=== PATIENT | female | born 1945 | race Caucasian/White ===

== ENCOUNTER 2016-12-13 08:34 | Inpatient (IN) | payer OTHER ==
[2016-12-13] VITALS (37 sets, daily range): BP systolic 72–198; BP diastolic 45–120
[~2016-12-13] VITALS: Ht 165.1 cm; Wt 89.8 kg
[2016-12-13 10:14] LABS: BASOPHILS % 1.1 % (0.0-2.0); EOSINOPHILS % 0.7 % (0.0-5.0); HEMATOCRIT. 40.2 % (36.0-48.0); HEMOGLOBIN. 13.1 g/dL (12.0-16.0); LYMPHOCYTES % 16.5 % (20.0-50.0); MEAN CORPUSCULAR VOLUME 85.5 fL (81.0-99.0); MEAN PLATELET VOLUME 10.7 fl (7.4-10.4); MONOCYTES % 8.5 % (2.0-8.0); NEUTROPHILS % 73.2 % (40.0-76.0); PLATELET 232 x1000/uL (130-400); RED CELL DISTRIBUTION WIDTH 15.4 % (11.6-14.6)
[2016-12-13] MEDS ORDERED: AMIODARONE HCL 900 MG in DEXT 5% WATER 482 ML IV STA ×2 (10:22→10:25)
[2016-12-13 10:32] LABS: CARBON DIOXIDE 25 mEq/L (21-32); CHLORIDE 99 mEq/L (98-107); TROPONIN I 0.02 ng/mL (0.00-0.04)
[2016-12-13 10:39] LABS: INR 1.4; PROTHROMBIN TIME 14.6 sec (9.4-11.6)
[2016-12-13] MEDS ORDERED: NOREPINEPHRINE 4 MG in DEXT 5% WATER 246 ML IV ONE (10:45)
[2016-12-13] MEDS ORDERED: NOREPINEPHRINE 4 MG in DEXT 5% WATER 246 ML IV NR (10:45)
[2016-12-13] MEDS ORDERED: EPINEPHRINE 0.1MG/ML (1:10,000) 10ML SYR ONE ×2 (10:48→12:12)
[2016-12-13] MEDS ORDERED: ETOMIDATE 2MG/ML 10ML VIAL IV ONE (11:15)
[2016-12-13] MEDS ORDERED: SUCCINYLCHOLINE CHLORIDE 200MG/10ML VIAL IV ONE (11:15)
[2016-12-13 12:00] LABS: BG BASE EXCESS -17.4 mmol/L (-2.0-2.0); BG CARBOXYHEMOGLOBIN 0.5 % (0.5-1.5); BG DEOXYHEMOGLOBIN 20.9 % (0.0-5.0); BG FRACTION INSPIRED OXYGEN 100; BG HCO3 ACT 13.7 mmol/L (22.0-26.0); BG METHEMOGLOBIN 0.3 % (0.0-1.5); BG OXYGEN SATURATION 78.9 % (92.0-98.5); BG OXYHEMOGLOBIN 78.3 % (94.0-97.0); BG PCO2 54.7 mmHg (35.0-45.0); BG PH 7.018 (7.350-7.450); BG PO2 62.2 mmHg (75.0-100.0); BG SAMPLE SITE RIGHT RADIAL; BG TIDAL VOLUME(mL) 500 mL; BG TOTAL HEMOGLOBIN 13.7 g/dL (12.0-18.0); BG VENT MODE VENT - A/C; BG VENT RATE 10 set
[2016-12-13] MEDS ORDERED: IPRATROPIUM/ALBUTEROL 0.5-3(2.5)MG/3ML NEB HHN PRN (12:00)
[2016-12-13] MEDS ORDERED: IPRATROPIUM/ALBUTEROL 0.5-3(2.5)MG/3ML NEB HHN SCH (12:00)
[2016-12-13] MEDS ORDERED: SODIUM BICARBONATE 8.4% 1 MEQ/ML 50ML SYR IV ONE ×2 (12:00→13:45)
[2016-12-13] MEDS ORDERED: MAGNESIUM 2 G PREMIX 50 ML IV ONE (12:00)
[2016-12-13] MEDS ORDERED: SODIUM BICARBONATE 7.5% 0.9 MEQ/ML 50ML SYR IV ONE (12:12)
[2016-12-13] MEDS ORDERED: CALCIUM CHLORIDE 1GM/10ML SYR IV ONE (12:12)
[2016-12-13] MEDS ORDERED: AMIODARONE HCL 50MG/ML 3ML VIAL IV ONE (12:12)
[2016-12-13] MEDS ORDERED: ATROPINE SULFATE 1MG/10ML SYR ONE ×2 (12:12)
[2016-12-13] MEDS ORDERED: DOPAMINE 400MG PREMIX 250 ML IV ONE (12:28)
[2016-12-13 13:29] LABS: BG BASE EXCESS -11.1 mmol/L (-2.0-2.0); BG CARBOXYHEMOGLOBIN 0.6 % (0.5-1.5); BG DEOXYHEMOGLOBIN 0.2 % (0.0-5.0); BG FRACTION INSPIRED OXYGEN 100; BG HCO3 ACT 16.8 mmol/L (22.0-26.0); BG METHEMOGLOBIN 0.4 % (0.0-1.5); BG OXYGEN SATURATION 99.8 % (92.0-98.5); BG OXYHEMOGLOBIN 98.8 % (94.0-97.0); BG PCO2 44.8 mmHg (35.0-45.0); BG PH 7.191 (7.350-7.450); BG PO2 365.6 mmHg (75.0-100.0); BG SAMPLE SITE RIGHT RADIAL; BG TIDAL VOLUME(mL) 500 mL; BG TOTAL HEMOGLOBIN 14.2 g/dL (12.0-18.0); BG VENT MODE VENT - A/C; BG VENT RATE 14 set
[2016-12-13] MEDS ORDERED: DOPAMINE 800MG PREMIX 250 ML IV PRN ×2 (14:00→14:30)
[2016-12-13] MEDS ORDERED: MIDAZOLAM HCL 50 MG in DEXTROSE 5% WATER 40 ML IV ONE (14:00)
[2016-12-13] MEDS ORDERED: IPRATROPIUM/ALBUTEROL 0.5-3(2.5)MG/3ML NEB INH PRN (15:15)
[2016-12-13] MEDS ORDERED: DOCUSATE SODIUM 100MG CAPSULE PO PRN (15:15)
[2016-12-13] MEDS ORDERED: DIPHENHYDRAMINE 50MG/ML VIAL IV PRN (15:15)
[2016-12-13] MEDS ORDERED: LORAZEPAM 2MG/ML CPJ IV PRN (15:15)
[2016-12-13] MEDS ORDERED: MAGNESIUM/ALUMINUM HYDROXIDE/SIMETHICONE 30ML UDC PO PRN (15:15)
[2016-12-13] MEDS ORDERED: GUAIFENESIN 200MG/10ML SUGAR FREE UDC PO PRN (15:15)
[2016-12-13] MEDS ORDERED: NA PHOS,M-B/NA PHOS,DI-BA ENEMA 118ML PR PRN (15:15)
[2016-12-13] MEDS ORDERED: CLONIDINE 0.1MG TABLET PO PRN (15:15)
[2016-12-13] MEDS ORDERED: ONDANSETRON HCL 4MG/2ML VIAL IV PRN (15:15)
[2016-12-13] MEDS ORDERED: ACETAMINOPHEN 325MG TABLET PO PRN (15:15)
[2016-12-13] MEDS ORDERED: VANCOMYCIN 1 G PREMIX 200 ML IV SCH (15:30)
[2016-12-13] MEDS: IPRATROPIUM/ALBUTEROL 0.5-3(2.5)MG/3ML NEB HHN SCH ×2 (17:01→20:25)
[2016-12-13] MEDS ORDERED: SODIUM BICARBONATE 8.4% 1 MEQ/ML 50ML SYR IV NR (17:45)
[2016-12-13] MEDS: DEXT 5%/0.45% NACL 1000ML 1,000 ML IV SCH (18:27)
[2016-12-13] MEDS: ENOXAPARIN 80MG/0.8ML SYR SUBCUT SCH (18:29)
[2016-12-13] MEDS ORDERED: SODIUM BICARBONATE 100 MEQ in SODIUM CHLORIDE 0.45% 1,000 ML IV SCH (18:30)
[2016-12-13] MEDS: NOREPINEPHRINE 16 MG in DEXT 5% WATER 234 ML IV PRN (19:46)
[2016-12-13] MEDS ORDERED: VANCOMYCIN 1500MG in DEXTROSE 5% WATER 250ML IV NR (20:00)
[2016-12-13] MEDS: CEFEPIME 1,000 MG in DEXTROSE 5% WATER 50 ML IV SCH (20:39)
[2016-12-13] MEDS ORDERED: AMIODARONE HCL 900 MG in DEXT 5% WATER 500 ML IV PRN (22:00)
[2016-12-13 22:42] LABS: BASOPHILS % 0.3 % (0.0-2.0); EOSINOPHILS % 0.1 % (0.0-5.0); HEMATOCRIT. 46.1 % (36.0-48.0); HEMOGLOBIN. 14.8 g/dL (12.0-16.0); LYMPHOCYTES % 8.7 % (20.0-50.0); MEAN CORPUSCULAR HEMOGLOBIN 28.3 pg (28.0-32.0); MEAN PLATELET VOLUME 11.1 fl (7.4-10.4); MONOCYTES % 11.3 % (2.0-8.0); NEUTROPHILS % 79.6 % (40.0-76.0); PLATELET 178 x1000/uL (130-400); RED BLOOD CELL COUNT 5.24 mill/uL (4.2-5.4); RED CELL DISTRIBUTION WIDTH 15.7 % (11.6-14.6)
[2016-12-14] VITALS (96 sets, daily range): BP systolic 80–169; BP diastolic 50–102
[2016-12-14] MEDS: IPRATROPIUM/ALBUTEROL 0.5-3(2.5)MG/3ML NEB HHN SCH ×2 (00:31→04:34)
[2016-12-14] MEDS: DEXT 5%/0.45% NACL 1000ML 1,000 ML IV SCH ×2 (03:45→08:41)
[2016-12-14 05:54] LABS: BASOPHILS % 0.2 % (0.0-2.0); EOSINOPHILS % 0.1 % (0.0-5.0); HEMATOCRIT. 43.3 % (36.0-48.0); HEMOGLOBIN. 13.9 g/dL (12.0-16.0); LYMPHOCYTES % 7.2 % (20.0-50.0); MEAN CORPUSCULAR HEMOGLOBIN 28.1 pg (28.0-32.0); MEAN CORPUSCULAR VOLUME 87.5 fL (81.0-99.0); MEAN PLATELET VOLUME 10.8 fl (7.4-10.4); MONOCYTES % 10.6 % (2.0-8.0); NEUTROPHILS % 81.9 % (40.0-76.0); PLATELET 284 x1000/uL (130-400); RED BLOOD CELL COUNT 4.95 mill/uL (4.2-5.4)
[2016-12-14] MEDS: NOREPINEPHRINE 16 MG in DEXT 5% WATER 234 ML IV PRN ×2 (06:49→08:52)
[2016-12-14] MEDS: ENOXAPARIN 80MG/0.8ML SYR SUBCUT SCH (06:50)
[2016-12-14 08:28] LABS: BG BASE EXCESS -1.5 mmol/L (-2.0-2.0); BG CARBOXYHEMOGLOBIN 0.9 % (0.5-1.5); BG DEOXYHEMOGLOBIN 1.5 % (0.0-5.0); BG FRACTION INSPIRED OXYGEN 50; BG HCO3 ACT 22.9 mmol/L (22.0-26.0); BG METHEMOGLOBIN 0.4 % (0.0-1.5); BG OXYGEN SATURATION 98.5 % (92.0-98.5); BG OXYHEMOGLOBIN 97.2 % (94.0-97.0); BG PCO2 37.7 mmHg (35.0-45.0); BG PH 7.401 (7.350-7.450); BG PO2 108.8 mmHg (75.0-100.0); BG SAMPLE SITE RIGHT RADIAL; BG TIDAL VOLUME(mL) 500 mL; BG TOTAL HEMOGLOBIN 14.7 g/dL (12.0-18.0); BG VENT MODE VENT - A/C; BG VENT RATE 14 set
[2016-12-14] MEDS ORDERED: DEXTROSE 50% WATER 50ML SYRINGE IV PRN (08:45)
[2016-12-14] MEDS: CEFEPIME 1,000 MG in DEXTROSE 5% WATER 50 ML IV SCH ×2 (08:57→21:28)
[2016-12-14] MEDS: PANTOPRAZOLE SODIUM 40 MG/VIAL IV SCH (08:57)
[2016-12-14] MEDS ORDERED: ASPIRIN 325MG TABLET PO SCH (09:00)
[2016-12-14] MEDS: BLOOD SUGAR DIAGNOSTIC STRIP TEST SCH ×3 (09:01→16:30)
[2016-12-14] MEDS: INSULIN LISPRO 100 UNITS/ML SUBCUT SCH ×3 (09:02→17:00)
[2016-12-14] MEDS: ASPIRIN 81MG TABLET PO SCH (09:14)
[2016-12-14] MEDS: FUROSEMIDE 40MG/4ML VIAL IVP SCH ×2 (09:14→17:52)
[2016-12-14 10:14] LABS: PHOSPHORUS 3.3 mg/dL (2.5-4.9)
[2016-12-14 10:29] LABS: INR 1.8; PARTIAL THROMBOPLASTIN TIME 34.2 sec (23.4-31.0); PROTHROMBIN TIME 18.3 sec (9.4-11.6)
[2016-12-14] MEDS ORDERED: ALBUMIN HUMAN 25GM/500ML (5%) IV NR (10:30)
[2016-12-14] MEDS ORDERED: VANCOMYCIN 1 G PREMIX 200 ML IV SCH (14:00)
[2016-12-14] MEDS ORDERED: VANCOMYCIN 1 G PREMIX 200 ML IV NR (21:00)
[2016-12-14] MEDS: AMIODARONE HCL 200 MG TABLET NG SCH (21:34)
[2016-12-15] VITALS (54 sets, daily range): BP systolic 93–134; BP diastolic 47–80
[2016-12-15] MEDS: BLOOD SUGAR DIAGNOSTIC STRIP TEST SCH ×3 (00:55→12:00)
[2016-12-15] MEDS: DEXT 5%/0.45% NACL 1000ML 1,000 ML IV SCH (04:02)
[2016-12-15 04:53] LABS: BASOPHILS % 0.6 % (0.0-2.0); EOSINOPHILS % 2.8 % (0.0-5.0); HEMATOCRIT. 40.4 % (36.0-48.0); HEMOGLOBIN. 13.8 g/dL (12.0-16.0); LYMPHOCYTES % 15.6 % (20.0-50.0); MEAN CORPUSCULAR HEMOGLOBIN 28.7 pg (28.0-32.0); MEAN CORPUSCULAR VOLUME 84.2 fL (81.0-99.0); MEAN PLATELET VOLUME 10.6 fl (7.4-10.4); PLATELET 185 x1000/uL (130-400); RED CELL DISTRIBUTION WIDTH 15.7 % (11.6-14.6)
[2016-12-15 05:22] LABS: CLARITY URINE CLOUDY (CLEAR); COLOR URINE YELLOW (YELLOW); GLUCOSE URINE NEGATIVE (NEGATIVE); KETONES URINE NEGATIVE (NEGATIVE); LEUKOCYTE ESTERASE URINE TRACE (NEGATIVE); NITRITE URINE NEGATIVE (NEGATIVE); OCCULT BLOOD URINE TRACE (NEGATIVE); PROTEIN URINE 3+ (NEGATIVE); SPECIFIC GRAVITY URINE 1.022 (1.005-1.030); UROBILINOGEN URINE 0.2 E.U./dL (0.2-1.0)
[2016-12-15] MEDS: INSULIN LISPRO 100 UNITS/ML SUBCUT SCH ×3 (06:00→12:00)
[2016-12-15 06:05] LABS: *AMPHETAMINES SCREEN URINE NEGATIVE (NEGATIVE); *BARBITURATES SCREEN URINE NEGATIVE (NEGATIVE); *BENZODIAZEPINES SCREEN URINE NEGATIVE (NEGATIVE); *COCAINE SCREEN URINE NEGATIVE (NEGATIVE); CANNABINOID URINE SCREEN NEGATIVE (NEGATIVE); METHADONE URINE SCREEN NEGATIVE (NEGATIVE); OPIATES URINE SCREEN NEGATIVE (NEGATIVE); PHENCYCLIDINE URINE SCREEN NEGATIVE (NEGATIVE)
[2016-12-15] MEDS: FUROSEMIDE 40MG/4ML VIAL IVP SCH (07:02)
[2016-12-15] MEDS: AMIODARONE HCL 200 MG TABLET NG SCH (08:47)
[2016-12-15] MEDS: ASPIRIN 81MG TABLET PO SCH (08:47)
[2016-12-15] MEDS: PANTOPRAZOLE SODIUM 40 MG/VIAL IV SCH (08:47)
[2016-12-15] MEDS ORDERED: ENOXAPARIN 30MG/0.3ML SYR SUBCUT SCH (09:00)
[2016-12-15] MEDS: CEFEPIME 1,000 MG in DEXTROSE 5% WATER 50 ML IV SCH (09:00)
[2016-12-15] MEDS ORDERED: SODIUM CHLORIDE 0.45% 1,000 ML IV SCH (09:30)
[2016-12-16] MEDS ORDERED: CEFEPIME 1,000 MG in DEXTROSE 5% WATER 50 ML IV SCH (09:00)
== END 2016-12-15 13:47 | disposition expired | DRG 871 ==
LOC: ER 08:48 → MICUSO 13:01 → EDBEDREQ 13:03 → ENRESERV 13:53 → CANBEDREQ 16:29
PROVIDERS: ADMIT Internal Medicine; ATTEND Internal Medicine
PROC: 5A1945Z Respiratory Ventilation, 24-96 Consecutive Hours (ICD-10-PCS; 2016-12-13)
PROC: 0BH17EZ Insertion of Endotracheal Airway into Trachea, Via Natural or Artificial Opening (ICD-10-PCS; 2016-12-13)
PROC: 5A12012 Performance of Cardiac Output, Single, Manual (ICD-10-PCS; principal; 2016-12-15)
DX: A41.9 Sepsis, unspecified organism (principal); E43 Unspecified severe protein-calorie malnutrition; I21.4 Non-ST elevation (NSTEMI) myocardial infarction; J96.00 Acute respiratory failure, unspecified whether with hypoxia or hypercapnia; K72.00 Acute and subacute hepatic failure without coma; I46.9 Cardiac arrest, cause unspecified; I48.91 Unspecified atrial fibrillation; R65.21 Severe sepsis with septic shock; G93.1 Anoxic brain damage, not elsewhere classified; L97.929 Non-pressure chronic ulcer of unspecified part of left lower leg with unspecified severity; N17.9 Acute kidney failure, unspecified; Y93.01 Activity, walking, marching and hiking; W01.0XXA Fall on same level from slipping, tripping and stumbling without subsequent striking against object, initial encounter; E11.622 Type 2 diabetes mellitus with other skin ulcer; I11.0 Hypertensive heart disease with heart failure; I50.9 Heart failure, unspecified; E78.00 Pure hypercholesterolemia, unspecified; E83.42 Hypomagnesemia; Y92.009 Unspecified place in unspecified non-institutional (private) residence as the place of occurrence of the external cause; Z68.32 Body mass index [BMI] 32.0-32.9, adult; Z79.82 Long term (current) use of aspirin
CPT/HCPCS: 31500; 36415; 36600; 51702; 70450; 71010; 76700; 78615; 80048; 80053; 80061; 80076; 80202; 80305; 81001; 82375; 82805; 82962; 83036; 83605; 83735; 83880; 84100; 84484; 85025; 85610; 85730; 87040; 92950; 93005; 93306; 93970; 94002; 94003; 94640; 94664; 96365; 96366; 96367; 96375; 99291; A9512; C9113; J0171; J0282; J0461; J0692; J1265; J1650; J1815; J1940; J2250; J3370; J3475; J3490; J7050; J7060; J7620; P9041; A4315

== ENCOUNTER 2016-12-15 13:48 | Inpatient (IN) | payer OTHER ==
[~2016-12-15] VITALS: Ht 165.1 cm; Wt 11.3 kg
[2016-12-15] MEDS ORDERED: SODIUM CHLORIDE 3% 500ML IV SOLN IV SCH (22:00)
[2016-12-15] MEDS ORDERED: HETASTARCH/NORMAL SALINE 500 ML PLAST..BAG IV ONE ×4 (22:00→22:30)
[2016-12-15] MEDS ORDERED: NOREPINEPHRINE 16 MG in DEXT 5% WATER 500 ML IV SCH (22:00)
[2016-12-15] MEDS ORDERED: VASOPRESSIN 10 UNIT in SODIUM CHLORIDE 0.9% 99.5 ML IV SCH (22:00)
[2016-12-15] MEDS ORDERED: SODIUM CHLORIDE 3% 500 ML IV ONE (22:45)
[2016-12-16] VITALS (89 sets, daily range): BP systolic 85–182; BP diastolic 47–151
[2016-12-16] MEDS ORDERED: NOREPINEPHRINE 16 MG in DEXT 5% WATER 500 ML IV SCH ×2
[2016-12-16] MEDS ORDERED: VASOPRESSIN 10 UNIT in SODIUM CHLORIDE 0.9% 100 ML IV SCH ×2
[2016-12-16 01:29] LABS: PHOSPHORUS 4.2 mg/dL (2.5-4.9)
[2016-12-16] MEDS ORDERED: HETASTARCH/NORMAL SALINE 500 ML PLAST..BAG IV SCH (02:45)
[2016-12-16] MEDS ORDERED: INSULIN REGULAR (DRIP) 100 UNITS in SODIUM CHLORIDE 0.9% 99 ML IV SCH (03:00)
[2016-12-16] MEDS ORDERED: ALBUMIN HUMAN 25GM/100ML (25%) IV SCH (03:26)
[2016-12-16] MEDS ORDERED: FUROSEMIDE 100MG/10ML VIAL IVP SCH (03:27)
[2016-12-16] MEDS ORDERED: LEVOTHYROXINE SODIUM 100 MCG/ VIAL IV SCH (04:00)
[2016-12-16] MEDS ORDERED: LEVOTHYROXINE SODIUM 200 MCG in SODIUM CHLORIDE 0.9% 500 ML IV SCH (05:00)
[2016-12-16] MEDS ORDERED: CALCIUM CHLORIDE 1,000 MG in DEXT 5% WATER 90 ML IV SCH (06:00)
[2016-12-16] MEDS: METHYLPREDNISOLONE SOD SUCC 500 MG in DEXT 5% WATER 100 ML IV SCH ×3 (06:18→21:42)
[2016-12-16] MEDS: DOBUTAMINE HCL 500 MG in DEXT 5% WATER 210 ML IV SCH ×2 (07:08→21:44)
[2016-12-16 09:03] LABS: PHOSPHORUS 4.4 mg/dL (2.5-4.9)
[2016-12-16] MEDS ORDERED: FUROSEMIDE 100MG/10ML VIAL IVP NR ×2 (09:30→16:30)
[2016-12-16] MEDS ORDERED: ALBUMIN HUMAN 25GM/100ML (25%) IV NR ×2 (09:30→17:00)
[2016-12-16] MEDS ORDERED: DOPAMINE 400MG PREMIX 250 ML IV NR (15:36)
[2016-12-16 16:51] LABS: PHOSPHORUS 3.6 mg/dL (2.5-4.9)
[2016-12-16 16:53] LABS: CLARITY URINE TURBID (CLEAR); COLOR URINE YELLOW (YELLOW); KETONES URINE NEGATIVE (NEGATIVE); LEUKOCYTE ESTERASE URINE 1+ (NEGATIVE); NITRITE URINE NEGATIVE (NEGATIVE); OCCULT BLOOD URINE 2+ (NEGATIVE); PROTEIN URINE 2+ (NEGATIVE); SPECIFIC GRAVITY URINE 1.019 (1.005-1.030); UROBILINOGEN URINE 0.2 E.U./dL (0.2-1.0)
[2016-12-16 22:23] LABS: BG BASE EXCESS -3.3 mmol/L (-2.0-2.0); BG CARBOXYHEMOGLOBIN 0.3 % (0.5-1.5); BG DEOXYHEMOGLOBIN 2.9 % (0.0-5.0); BG FRACTION INSPIRED OXYGEN 40; BG HCO3 ACT 20.4 mmol/L (22.0-26.0); BG METHEMOGLOBIN 0.1 % (0.0-1.5); BG OXYGEN SATURATION 97.1 % (92.0-98.5); BG OXYHEMOGLOBIN 96.7 % (94.0-97.0); BG PCO2 31.9 mmHg (35.0-45.0); BG PH 7.423 (7.350-7.450); BG PO2 100.7 mmHg (75.0-100.0); BG SAMPLE SITE LEFT RADIAL; BG TOTAL HEMOGLOBIN 11.3 g/dL (12.0-18.0); BG VENT MODE VENT - PCV; BG VENT RATE 9 set
[2016-12-16 22:46] LABS: HEMATOCRIT. 31.1 % (36.0-48.0); HEMOGLOBIN. 10.4 g/dL (12.0-16.0); MEAN CORPUSCULAR HEMOGLOBIN 27.9 pg (28.0-32.0); MEAN CORPUSCULAR VOLUME 83.2 fL (81.0-99.0); PLATELET 161 x1000/uL (130-400); RED BLOOD CELL COUNT 3.73 mill/uL (4.2-5.4); RED CELL DISTRIBUTION WIDTH 15.6 % (11.6-14.6)
[2016-12-16 22:50] LABS: INR 1.7; PARTIAL THROMBOPLASTIN TIME 44.7 sec (23.4-31.0)
[2016-12-16 22:56] LABS: CARBON DIOXIDE 22 mEq/L (21-32); CHLORIDE 99 mEq/L (98-107)
[2016-12-16 23:02] LABS: CLARITY URINE CLOUDY (CLEAR); COLOR URINE YELLOW (YELLOW); KETONES URINE NEGATIVE (NEGATIVE); LEUKOCYTE ESTERASE URINE TRACE (NEGATIVE); NITRITE URINE NEGATIVE (NEGATIVE); OCCULT BLOOD URINE 3+ (NEGATIVE); PROTEIN URINE 1+ (NEGATIVE); SPECIFIC GRAVITY URINE 1.017 (1.005-1.030); UROBILINOGEN URINE 0.2 E.U./dL (0.2-1.0)
[2016-12-16 23:05] LABS: PHOSPHORUS 3.9 mg/dL (2.5-4.9)
[2016-12-16 23:07] LABS: AMYLASE 296 IU/L (25-115)
[2016-12-16 23:19] LABS: PLATELET ESTIMATE NORMAL
[2016-12-17] VITALS: BP 113/94
[2016-12-17 00:02] VITALS: BP_SYST 115; BP_SYST 153; BP_DIAS 71; BP_DIAS 95
[2016-12-17 00:15] VITALS: BP 113/94
[2016-12-17 00:17] VITALS: BP_SYST 114; BP_SYST 154; BP_DIAS 70; BP_DIAS 94
[2016-12-17 00:30] VITALS: BP 112/58
== END 2016-12-17 02:00 | disposition expired | DRG 133 ==
LOC: MICUSO 13:48 → MICUNO 21:54
DX: J96.00 Acute respiratory failure, unspecified whether with hypoxia or hypercapnia (principal)
CPT/HCPCS: 36415; 36600; 71010; 80053; 80076; 81001; 82150; 82248; 82330; 82375; 82550; 82553; 82805; 82962; 82977; 83605; 83615; 83690; 83735; 83930; 84100; 84484; 85025; 85610; 85730; 86850; 86900; 87040; 87070; 87086; 93005; 94003; J1250; J1265; J1815; J1940; J2930; J3490; J7040; J7050; J7060; P9047